=== PATIENT | female | born 1935 | race Caucasian/White ===

== ENCOUNTER 2017-06-09 08:34 | Inpatient (IN) ==
[2017-06-09] MEDS ORDERED: IOPAMIDOL 100 ML BOTTLE IV ONE (08:35)
[2017-06-09] MEDS ORDERED: ONDANSETRON 4 MG/2 ML VIAL IV ONE ×2 (09:22→09:31)
[2017-06-09] MEDS ORDERED: 0.9 % SODIUM CHLORIDE 2,000 ML IV ONE (09:31)
[2017-06-09] MEDS ORDERED: HYDROmorphone 2 MG/ML VIAL IV PRN (09:31)
[2017-06-09 10:32] LABS: Basophils # (Auto) 0 K/mcL (0.0-0.3); Basophils % (Auto) 0.1 % (0.0-2.0); Eosinophils # (Auto) 0 K/mcL (0.0-0.7); Eosinophils % (Auto) 0 % (0.0-7.0); Granulocytes % (Auto) 84.7 % (38.0-78.0); Lymphocytes % (Auto) 5.9 % (15.5-49.0); Mean Cell Volume 74.8 fL (80.0-100.0); Mean Corpuscular HGB Conc 32.3 g/dL (31.0-36.0); Mean Corpuscular Hemoglobin 24.2 pg (26.0-34.0); Monocytes # (Auto) 1.5 K/mcL (0.1-0.9); Monocytes % (Auto) 9.3 % (1.0-12.0); Platelet Count 262 K/mcL (140-440); RBC 4.15 M/mcL (4.00-5.20); Red Cell Distribution Width 15.8 % (11.5-14.5)
[2017-06-09 10:38] LABS: ALT/SGPT 8 U/l (0-40); Albumin 3.2 gm/dL (3.2-5.2); Albumin/Globulin Ratio 1.2 (1.0-2.3); Alkaline Phosphatase 98 U/L (39-117); Amylase 7 U/L (28-100); Blood Urea Nitrogen 38 mg/dl (8-23); Lipase < 7 U/L (7-60)
[2017-06-09] MEDS ORDERED: ONDANSETRON 4 MG/2 ML VIAL IV PRN (11:29)
--- NOTE | 2017-06-09 11:35 | Emergency Department Note ---
Abdominal Pain HPI - General Chief Complaint: Abdominal Pain Stated Complaint: abd pain, n/v Time Seen by Provider: 06/09/17 09:31 Source: patient, family Mode of arrival: ambulatory Limitations: no limitations - History of Present Illness HPI Narrative: 81-year-old female who was here yesterday for constipation. At that time she received 1 fleets enema and Dulcolax suppository. Neither which affected bowel movement production. He comes back today with pain even worse now radiating to her right groin. Her belly is so tender she cannot sit up. She has not been able to eat or drink for the last 2 days and has had intractable nausea vomiting with any oral intake. She has not been able take her pain medicines which she is on for chronic back pain. Bowel movement for the last 6-7 days. X -ray of the abdomen from yesterday is reviewed which showed constipation but no free air or dilated bowel with air-fluid levels. - Related Data Home Medications Medication Instructions Recorded Confirmed Amitriptyline [Elavil] 20 mg PO HS 06/09/17 06/09/17 Diltiazem [Cardizem Cd] 360 mg PO HS 06/09/17 06/09/17 Gabapentin [Neurontin] 100 mg PO Q12 06/09/17 06/09/17 traZODone HCL [Trazodone HCl] 50 mg PO 06/09/17 Previous Rx's Medication Instructions Recorded Ondansetron HCl [Zofran ODT] 4 mg SL Q4-6HP PRN #20 tab 06/01/17 oxyCODONE/APAP [Percocet 5-325 mg] 1 tab PO Q4-6H PRN #12 tab 06/01/17 Polyethylene Glycol 3350 [Miralax] 17 gm PO TIDP PRN #60 packet 06/08/17 Allergies Allergy/AdvReac Type Severity Reaction Status Date / Time No Known Drug Allergies Allergy Verified 06/01/17 14:18 Review of Systems All systems ED: reviewed and negative except as stated. Abdominal Pain PMH - Past Medical History Attestation: Yes: The following information was validated with the patient. Medical history: Reports: hypertension, other (Chronic back pain which she is on oxycodone for) Surgical history ED: Reports: orthopedic, other (Ankle) - Social History Smoking status: Never smoker Alcohol use: Reports: None Physical Exam 81-year-old female lying flat. Most history per her family but patient is able to answer questions and talk normally. Normocephalic atraumatic. Conjunctive are clear sclerae white and nonicteric. Normal pupillary response and extraocular movements. No nasal discharge or congestion. Oropharynx is pink and moist. Neck is supple without lymphadenopathy or thyromegaly. Heart is regular rate and rhythm. She does have a 2 out of 6 murmur that radiates to her left neck, consider aortic etiology. Lungs are clear to auscultation bilaterally without wheezes rales rhonchi or respiratory distress. Abdomen is soft distended with tenderness throughout worse to the right groin. No pedal edema. +2 radial pulse. Alert oriented Limitations: no limitations Course Vital Signs Temperature 97.1 F 06/09/17 08:35 Pulse Rate 115 H 06/09/17 08:35 Respiratory Rate 16 06/09/17 08:35 Blood Pressure 103/56 06/09/17 08:35 Pulse Oximetry (%) 97 06/09/17 08:35 Temperature 97.1 F 06/09/17 08:35 Pulse Rate 115 H 06/09/17 08:35 Respiratory Rate 16 06/09/17 08:35 Blood Pressure 103/56 06/09/17 08:35 Pulse Oximetry (%) 97 06/09/17 08:35 Abdominal Pain - Lab Data Lab results reviewed: Yes I reviewed the patient's lab results. Result diagrams: 06/09/17 09:38 06/09/17 09:38 Lab Results 06/09/17 06/09/17 06/09/17 Range/Units 09:38 09:38 09:38 WBC 16.4 H (4.5-11.0) K/mcL RBC 4.15 (4.00-5.20) M/mcL Hgb 10.0 L (12.0-15.0) g/dL Hct 31.1 L (36.0-48.0) % POC Hct 31.0 L (36.0-48.0) % MCV 74.8 L (80.0-100.0) fL MCH 24.2 L (26.0-34.0) pg MCHC 32.3 (31.0-36.0) g/dL RDW 15.8 H (11.5-14.5) % Plt Count 262 (140-440) K/mcL MPV 8.7 (7.4-10.4) fL Gran % 84.7 H (38.0-78.0) % Lymph % (Auto) 5.9 L (15.5-49.0) % [place] % (Auto) 9.3 (1.0-12.0) % Eos % (Auto) 0 (0.0-7.0) % Baso % (Auto) 0.1 (0.0-2.0) % Gran # 13.9 H (1.8-8.0) K/mcL Lymph # (Auto) 1.0 L (1.5-4.8) K/mcL [place] # (Auto) 1.5 H (0.1-0.9) K/mcL Eos # (Auto) 0 (0.0-0.7) K/mcL Baso # (Auto) 0 (0.0-0.3) K/mcL PT 15.9 H (11.9-14.5) sec INR 1.2 H (0.9-1.1) VBG Lactic Acid (0.5-2.2) mmol/L POC Sodium 136 (133-145) mmol/L Sodium 135 (133-145) mmol/L POC Potassium 3.6 (3.3-5.1) mmol/L Potassium 3.8 (3.3-5.1) mmol/L POC Chloride 103 (96-108) mmol/L Chloride 99 (96-108) mmol/L Carbon Dioxide 22 (22-30) mmol/L POC Total CO2 23 (22-30) mmol/L Anion Gap 14.0 (8-16) POC BUN 34 H (8-23) mg/dl BUN 38 H (8-23) mg/dl Creatinine 1.1 (0.6-1.1) mg/dl POC Creatinine 1.2 H (0.6-1.1) mg/dl GFR Calculation 46 Glucose 166 H (70-105) mg/dL POC Glucose 166 H (70-105) mg/dL Calcium 7.9 L (8.6-10.4) mg/dl POC WB Ioniz Calcium 1.08 L (1.16-1.32) mmol/L Total Bilirubin 0.4 (0.0-1.0) mg/dL AST 12 (0-37) U/l ALT 8 (0-40) U/l Alkaline Phosphatase 98 (39-117) U/L Total Protein 5.8 L (5.9-8.4) gm/dL Albumin 3.2 (3.2-5.2) gm/dL Globulin 2.6 (2.2-3.7) gm/dL Albumin/Globulin Ratio 1.2 (1.0-2.3) Amylase 7 L (28-100) U/L Lipase < 7 L (7-60) U/L 06/09/17 Range/Units 09:40 WBC (4.5-11.0) K/mcL RBC (4.00-5.20) M/mcL Hgb (12.0-15.0) g/dL Hct (36.0-48.0) % POC Hct (36.0-48.0) % MCV (80.0-100.0) fL MCH (26.0-34.0) pg MCHC (31.0-36.0) g/dL RDW (11.5-14.5) % Plt Count (140-440) K/mcL MPV (7.4-10.4) fL Gran % (38.0-78.0) % Lymph % (Auto) (15.5-49.0) % [place] % (Auto) (1.0-12.0) % Eos % (Auto) (0.0-7.0) % Baso % (Auto) (0.0-2.0) % Gran # (1.8-8.0) K/mcL Lymph # (Auto) (1.5-4.8) K/mcL [place] # (Auto) (0.1-0.9) K/mcL Eos # (Auto) (0.0-0.7) K/mcL Baso # (Auto) (0.0-0.3) K/mcL PT (11.9-14.5) sec INR (0.9-1.1) VBG Lactic Acid 1.2 (0.5-2.2) mmol/L POC Sodium (133-145) mmol/L Sodium (133-145) mmol/L POC Potassium (3.3-5.1) mmol/L Potassium (3.3-5.1) mmol/L POC Chloride (96-108) mmol/L Chloride (96-108) mmol/L Carbon Dioxide (22-30) mmol/L POC Total CO2 (22-30) mmol/L Anion Gap (8-16) POC BUN (8-23) mg/dl BUN (8-23) mg/dl Creatinine (0.6-1.1) mg/dl POC Creatinine (0.6-1.1) mg/dl GFR Calculation Glucose (70-105) mg/dL POC Glucose (70-105) mg/dL Calcium (8.6-10.4) mg/dl POC WB Ioniz Calcium (1.16-1.32) mmol/L Total Bilirubin (0.0-1.0) mg/dL AST (0-37) U/l ALT (0-40) U/l Alkaline Phosphatase (39-117) U/L Total Protein (5.9-8.4) gm/dL Albumin (3.2-5.2) gm/dL Globulin (2.2-3.7) gm/dL Albumin/Globulin Ratio (1.0-2.3) Amylase (28-100) U/L Lipase (7-60) U/L - Radiology Data Radiology results reviewed: Yes I reviewed the patient's radiology results. CT scan of the abdomen and pelvis shows a right pleural effusion on lower lung tissue, severe constipation, and thickened bowel from the splenic flexure down to the sigmoid with naif-colic fat stranding consistent with colitis. Disposition Pt seen by TERRAZZO GRINDER/PA only: No Clinical Impression: Obstipation, Pleural effusion, Colitis Summary: Initially treated with Zofran IV fluids and Dilaudid during workup with labs and CT scan of the abdomen pelvis. CT scan showed colitis and severe constipation. Small right pleural effusion is seen which is chronic per history Discussed case with Dr. Kaiser Bansal who agreed to accept the patient for inpatient care; transition orders written Disposition: Xfer As Inpt ([facility]) Condition: Fair Referrals: Becky Real MD [Primary Care Provider] - Kaiser Bansal MD [Physician] -
--- NOTE | 2017-06-09 13:23 | General Surg History&Physical ---
History of Present Illness Patient information: Note initiated : 06/09/17 at 1:20 pm Service Date, if different from initiated Date: [] Patient: Mckenna Hurtado 81 y/o F admitted on 06/09/17 for abd pain, n/v. Chief Complaint: [] HPI: Ms. Huratdo is a 81 year old F admitted with history of recurrent abdominal pain nausea and vomiting associated with severe constipation. The patient has a 7 day history of constipation with no flatus or bowel movement over this time. She was seen in the emergency room yesterday and was given enemas and suppositories without relief. She was discharged home on oral MiraLAX but could not keep any of the MiraLAX down and had nausea and vomiting all night. The pain in her lower abdomen has increased and she has become more distended. Her white count is up to 16,000. She has had intermittent difficulty with constipation for the past 2 months. She takes diltiazem chronically and she takes oxycodone for severe low back pain. She has taken more oxycodone of the past few months. She is admitted with intestinal obstruction due to opioid- induced constipation. Review of Systems - Constitutional malaise, weakness - EENT Nose, mouth and throat: abnormal hearing, dizziness - Breasts other (Possible right breast mass) - Cardiovascular no chest pain at rest, no dyspnea on exertion, no palpatations, no pedal edema - Respiratory no cough, no dyspnea on exertion, no wheezing, no pain with cough - Gastrointestinal abdominal pain, bloating, change in bowel habits, constipation, cramping, nausea , vomiting - Genitourinary Genitourinary: no dysuria, no urinary frequency, no urinary incontinence, no urinary urgency - Musculoskeletal abnormal gait, arthralgias, back pain, muscle cramps, myalgias, radiating pain into limb, stiffness - Integumentary changing lesions, unusual bruising - Neurological abnormal hearing, dizziness, no confusion, no convulsions, no headache(s), no numbness, no vertigo - Psychiatric no anxiety, no confusion, no depression, no memory loss - Endocrine no palpitations, no polydipsia, no polyphagia - Hematologic/Lymphatic easy bruising, no easy bleeding, no lymphadenopathy - Allergic/Immunologic no tongue swelling, no throat swelling, no uticaria, no wheezing, no lip swelling Past History Past medical history: Hypertension Right lung mass Past surgical history: Open treatment right ankle fracture Past family history: Patient not sure of history Past social history: Lives locally No drug use No alcohol use Never smoker Medications and Allergies Home Medications Medication Instructions Recorded Confirmed Type Ondansetron HCl [Zofran ODT] 4 mg SL Q4-6HP PRN #20 tab 06/01/17 06/09/17 Rx oxyCODONE/APAP [Percocet 5-325 mg] 1 tab PO Q4-6H PRN #12 tab 06/01/17 06/09/17 Rx Polyethylene Glycol 3350 [Miralax] 17 gm PO TIDP PRN #60 packet 06/08/17 Rx Amitriptyline [Elavil] 20 mg PO HS 06/09/17 06/09/17 History Diltiazem [Cardizem Cd] 360 mg PO DAILY 06/09/17 06/09/17 History Gabapentin [Neurontin] 100 mg PO BID 06/09/17 06/09/17 History Gabapentin [Neurontin] 200 mg PO HS 06/09/17 06/09/17 History traZODone HCL [Trazodone HCl] 50 mg PO HS 06/09/17 06/09/17 History Allergies Allergy/AdvReac Type Severity Reaction Status Date / Time No Known Drug Allergies Allergy Verified 06/09/17 12:31 Exam Temp Pulse Resp BP Pulse Ox 99.7 F H 96 H 20 107/63 97 06/09/17 12:37 06/09/17 12:37 06/09/17 12:37 06/09/17 12:37 06/09/17 12:37 - General physical appearance well developed, well nourished, moderate distress, moderate pain - Eyes PERRL, normal ocular movement. negative: icteric - ENT normal pinna, normal nares, normal mucosa, no congestion, decreased hearing - Head Head exam IM: Present: atraumatic, normal inspection, normocephalic - Neck no masses, trachea midline, no lymphadectomy, no venous distension, other (Soft left carotid bruit) carotid bruit: left - Cardiovascular Cardiovascular exam IM: Present: normal rate and rhythm, RRR, +S1, +S2. Absent : JVD - Respiratory normal expansion, normal respiratory effort, clear to percussion, clear to auscultation - Abdomen Abdomen: Present: soft, tender, bowel sounds, distended (Diffusely distended with diffuse tenderness; active bowel sounds; no palpable masses) Hernia: Present: none - Genitourinary Present: normal external genitalia - Integumentary Present: no rash, no growths, no abnormal pigmentation, other (Scattered subcutaneous ecchymotic lesions) - Neurologic Present: normal coordination, normal sensation - Musculoskeletal Present: other (Gait and stance not tested) - Psychiatric Present: oriented to time, oriented to person, oriented to place, speech is normal, memory intact Assessment and Plan (1) Constipation due to opioid therapy Cardizem will be withheld for the next day also Relistor 12 mg subcu daily 3 Reglan 5 mg IV every 6 Start oral MiraLAX once patient can tolerate p.o. Status: Acute (2) Low back pain at multiple sites Treat with IV narcotic analgesics ,Neurontin, and muscle relaxants Status: Acute (3) Hypertension Diltiazem until her constipation is better controlled will be withheld Status: Acute
[2017-06-09] MEDS: 0.9 % SODIUM CHLORIDE 1,000 ML IV SCH (13:40)
[2017-06-09] MEDS: METHYLNALTREXONE BROMIDE 12 MG/0.6 ML SYRINGE SQ SCH (15:00)
--- NOTE | 2017-06-09 16:04 | Cat Scan Report ---
CLINICAL INFORMATION: Abdominal pain and constipation COMPARISON: None. TECHNIQUE: Following enteric contrast, 80 cc of Isovue-300 were injected intravenously, and 60 seconds later, 0.625 mm helical slices were obtained from the mid heart through the subtrochanteric regions. Following reconstruction, 2.5 mm sagittal, coronal and axial reformatted images were processed and reviewed at bone, lung and soft tissue windows. Five minutes later, 0.625 mm helical slices were obtained from the mid heart through the kidneys and viewed at soft tissue windows.The exam was performed using radiation dose optimization techniques including, but not limited to, automated exposure control, adjustment of the mA and/or kV according to patient size and use of iterative reconstruction technique. FINDINGS: Lung bases show small right pleural effusion recess and subsegmental atelectasis in the posterior right lower lobe. The visualized heart is grossly normal in size. There is moderate calcific plaque in the coronary arteries and calcification in the aortic and mitral valves. Small hiatal hernia is noted Images through the abdomen show the gallbladder and bile ducts, liver, both adrenal glands, spleen and pancreas are normal in size, configuration and attenuation without focal lesion. Scattered fibrofatty and calcific plaque is seen in in the abdominal aorta, but the aorta is normal in contour and caliber. The celiac, SMA, ISAÍAS and renal arteries are widely patent. Images through the pelvis the urinary bladder is mildly distended and slightly bladder distends below the urogenital diaphragm. Normal-appearing postmenopausal uterus is anteflexed and spans 7 x 3 cm. The ovaries are normal. Small amount of free fluid is noted deep true pelvis. The colon is mildly dilated and demonstrate mild concentric wall thickening and mild pericolonic inflammation with small fluid in the pericolonic gutter and in the mesenteric cavity. Interestingly, the sigmoid is dilated to the rectosigmoid junction where there is abrupt transition into a very narrow rectum. The possibility of distal sigmoid/proximal rectal obstruction due to stricture should be entertained. Bone windows show degenerative changes in the lumbar spine IMPRESSION: 1. Mild colonic dilatation to the rectosigmoid junction is abrupt transition into a narrowed rectum. The possibility of distal sigmoid obstruction due to stricture etc. should be entertained. Please correlate with Digital rectal exam, endoscopy etc. Minimal concentric wall thickening of the entire colon with pericolonic inflammation and free fluid may be due to distal colonic obstruction or a secondary process such as infectious or inflammatory colitis 2. Small hiatal hernia 3. Small right pleural effusion Interpreted and Authenticated by: Beny Gale 06/09/17
[2017-06-09] MEDS: PANTOPRAZOLE 40 MG VIAL IV SCH (17:07)
[2017-06-09] MEDS: METOCLOPRAMIDE 10 MG/2 ML VIAL IV SCH (17:08)
[2017-06-09] MEDS: AMITRIPTYLINE 10 MG TABLET PO SCH (21:34)
[2017-06-09] MEDS: traZODone HCL 50 MG TABLET PO SCH (21:34)
[2017-06-09] MEDS: GABAPENTIN 100 MG CAPSULE PO SCH (21:34)
[2017-06-10] MEDS: METOCLOPRAMIDE 10 MG/2 ML VIAL IV SCH ×5 (00:12→23:54)
[2017-06-10] MEDS: 0.9 % SODIUM CHLORIDE 1,000 ML IV SCH ×4 (00:15→20:31)
[2017-06-10 05:42] LABS: Basophils # (Auto) 0 K/mcL (0.0-0.3); Basophils % (Auto) 0 % (0.0-2.0); Eosinophils # (Auto) 0 K/mcL (0.0-0.7); Eosinophils % (Auto) 0.2 % (0.0-7.0); Granulocytes % (Auto) 79.6 % (38.0-78.0); Lymphocytes # (Auto) 1.1 K/mcL (1.5-4.8); Mean Cell Volume 75.4 fL (80.0-100.0); Mean Corpuscular HGB Conc 31.6 g/dL (31.0-36.0); Mean Corpuscular Hemoglobin 23.9 pg (26.0-34.0); Monocytes # (Auto) 1.2 K/mcL (0.1-0.9); Monocytes % (Auto) 10.2 % (1.0-12.0); Platelet Count 231 K/mcL (140-440); Red Cell Distribution Width 16.3 % (11.5-14.5)
[2017-06-10 06:11] LABS: ALT/SGPT 6 U/l (0-40); Albumin 2.4 gm/dL (3.2-5.2); Alkaline Phosphatase 87 U/L (39-117); Bilirubin,Direct < 0.2 mg/dL (0.0-0.3); Blood Urea Nitrogen 34 mg/dl (8-23); Gamma Glutamyl Transpeptidase 13 U/L (5-36); Uric Acid 5.3 mg/dL (2.5-8.0)
[2017-06-10] MEDS: PANTOPRAZOLE 40 MG VIAL IV SCH ×2 (07:02→17:56)
[2017-06-10] MEDS: GABAPENTIN 100 MG CAPSULE PO SCH ×3 (08:42→21:51)
[2017-06-10] MEDS: METHYLNALTREXONE BROMIDE 12 MG/0.6 ML SYRINGE SQ SCH (09:08)
[2017-06-10] MEDS ORDERED: FLU VACC QS2017-18 36MOS UP/PF 60 MCG/0.5 ML SYRINGE IM ONE (10:00)
[2017-06-10] MEDS ORDERED: PNEUMOCOCCAL 23-VAL P-SAC VAC 0.5 ML VIAL IM ONE (10:15)
[2017-06-10 12:22] LABS: Appearance,Urine HAZY; Bacteria,Urine MANY /hpf (0); Bilirubin,Urine NEG (NEG); Glucose,Urine (UA) NEGATIVE (NEG); Leukocyte Esterase,Urine 75 /uL (NEG); Mucus,Urine MANY /hpf (0); Protein,Urine 30 mg/dL (NEG); Specific Gravity,Urine 1.028 (1.000-1.035); Urine Blood 0.03 mg/dL (<0.03); Urine RBC 1 /hpf (0-1); Urine Squamous Epithelial Cell 2 /hpf (0-4); Urine WBC 9 /hpf (0-4)
[2017-06-10 12:40] LABS: Color,Urine YELLOW
--- NOTE | 2017-06-10 13:03 | General Surgery Progress Note ---
Subjective Patient reports: feels better, still having pain, no flatus, no bowel movement, afebrile Narrative: Note initiated : 06/10/17 at 1:01 pm Service Date, if different from initiated Date: [] Patient: Mckenna Hurtado 81 y/o F admitted on 06/09/17 for Abd Pain, N/V/ Constipation due to Opioid Therapy. Chief Complaint: [Patient is doing well but she still has not passed flatus or had a bowel movement. She denies nausea. Her abdominal distention is clinically worse but she does not have as much tenderness or pain. She does have more active bowel sounds at this time that she had on yesterday.] Objective Temp Pulse Resp BP Pulse Ox 99.2 F H 92 H 18 138/90 98 06/10/17 12:00 06/10/17 12:00 06/10/17 12:00 06/10/17 12:00 06/10/17 12:00 - Additional Data Intake & Output - Last 24 hours: Intake & Output 06/08/17 06/09/17 06/10/17 06/11/17 05:59 05:59 05:59 05:59 Intake Total 1300 / 1300 1800 / 1800 Output Total 201 / 201 Balance 1099 / 1099 1800 / 1800 Weight 179 lb 8 oz - General physical appearance well developed, well nourished, no distress - Eyes PERRL - ENT no congestion - Neck no venous distension - Respiratory normal expansion, normal respiratory effort, clear to auscultation - Cardiovascular Cardiovascular exam: Present: normal rate and rhythm, RRR, +S1, +S2. Absent: gallop, JVD - Abdomen soft, tender (Mildly tender to firm palpation; much better active bowel sounds; increased distention with tympany) - Rectum other (Decreased anal sphincter tone; no masses or stool in rectum) - Integumentary no rash, no growths, no abnormal pigmentation - Neurologic normal coordination, normal sensation - Musculoskeletal normal posture - Psychiatric oriented to time, oriented to person, oriented to place, speech is normal, memory intact - Labs 06/10/17 04:10 06/10/17 04:10 Diabetes panel 06/10/17 Range/Units 04:10 Sodium 138 (133-145) mmol/L Potassium 3.9 (3.3-5.1) mmol/L Chloride 104 (96-108) mmol/L Carbon Dioxide 22 (22-30) mmol/L BUN 34 H (8-23) mg/dl Creatinine 0.9 (0.6-1.1) mg/dl Glucose 123 H (70-105) mg/dL Calcium 7.3 L (8.6-10.4) mg/dl AST 10 (0-37) U/l ALT 6 (0-40) U/l Alkaline Phosphatase 87 (39-117) U/L Total Protein 4.8 L (5.9-8.4) gm/dL Albumin 2.4 L (3.2-5.2) gm/dL Triglycerides 103 (<150) mg/dl Calcium panel 06/10/17 Range/Units 04:10 Calcium 7.3 L (8.6-10.4) mg/dl Phosphorus 2.0 L (2.7-4.5) mg/dL Albumin 2.4 L (3.2-5.2) gm/dL Pituitary panel 06/10/17 Range/Units 04:10 Sodium 138 (133-145) mmol/L Potassium 3.9 (3.3-5.1) mmol/L Chloride 104 (96-108) mmol/L Carbon Dioxide 22 (22-30) mmol/L BUN 34 H (8-23) mg/dl Creatinine 0.9 (0.6-1.1) mg/dl Glucose 123 H (70-105) mg/dL Calcium 7.3 L (8.6-10.4) mg/dl Adrenal panel 06/10/17 Range/Units 04:10 Sodium 138 (133-145) mmol/L Potassium 3.9 (3.3-5.1) mmol/L Chloride 104 (96-108) mmol/L Carbon Dioxide 22 (22-30) mmol/L BUN 34 H (8-23) mg/dl Creatinine 0.9 (0.6-1.1) mg/dl Glucose 123 H (70-105) mg/dL Calcium 7.3 L (8.6-10.4) mg/dl Total Bilirubin 0.3 (0.0-1.0) mg/dL AST 10 (0-37) U/l ALT 6 (0-40) U/l Alkaline Phosphatase 87 (39-117) U/L Total Protein 4.8 L (5.9-8.4) gm/dL Albumin 2.4 L (3.2-5.2) gm/dL Assessment and Plan (1) Constipation due to opioid therapy Status: Acute Assessment and plan: Start GoLYTELY 8 ounces 4 times daily Milk of magnesia 30 cc every 4 hours 2 view abdominal x-rays in the morning Current Visit: No (2) Low back pain at multiple sites Status: Acute Current Visit: Yes (3) Hypertension Status: Acute Current Visit: Yes - Time Spent With Patient Total time spent is greater than 50% in coordination of care (as documented) at patient's floor/unit and/or counseling patient:
[2017-06-10] MEDS: MAGNESIUM HYDROXIDE 30 ML ORAL.SUSP PO SCH ×3 (14:30→23:55)
[2017-06-10] MEDS: POLYETHYLENE GLYCOL 3350 17 GM PACKET PO SCH ×3 (14:30→21:49)
[2017-06-10] MEDS: AMITRIPTYLINE 10 MG TABLET PO SCH (21:50)
[2017-06-10] MEDS: traZODone HCL 50 MG TABLET PO SCH (21:50)
[2017-06-11] MEDS: METOCLOPRAMIDE 10 MG/2 ML VIAL IV SCH ×2 (06:19→12:56)
[2017-06-11] MEDS: 0.9 % SODIUM CHLORIDE 1,000 ML IV SCH ×2 (06:20→13:00)
[2017-06-11 06:28] LABS: Basophils # (Auto) 0 K/mcL (0.0-0.3); Basophils % (Auto) 0.2 % (0.0-2.0); Eosinophils # (Auto) 0.2 K/mcL (0.0-0.7); Eosinophils % (Auto) 2.2 % (0.0-7.0); Granulocytes % (Auto) 75.7 % (38.0-78.0); Lymphocytes % (Auto) 11.7 % (15.5-49.0); Mean Cell Volume 74.6 fL (80.0-100.0); Mean Corpuscular HGB Conc 31.8 g/dL (31.0-36.0); Mean Corpuscular Hemoglobin 23.7 pg (26.0-34.0); Monocytes # (Auto) 0.9 K/mcL (0.1-0.9); Monocytes % (Auto) 10.2 % (1.0-12.0); Platelet Count 228 K/mcL (140-440); RBC 3.48 M/mcL (4.00-5.20); Red Cell Distribution Width 15.8 % (11.5-14.5)
[2017-06-11 06:52] LABS: ALT/SGPT 10 U/l (0-40); Albumin 2.5 gm/dL (3.2-5.2); Alkaline Phosphatase 81 U/L (39-117); Bilirubin,Direct < 0.2 mg/dL (0.0-0.3); Blood Urea Nitrogen 22 mg/dl (8-23); Gamma Glutamyl Transpeptidase 12 U/L (5-36); Uric Acid 5.1 mg/dL (2.5-8.0)
[2017-06-11] MEDS: PANTOPRAZOLE 40 MG VIAL IV SCH (07:50)
--- NOTE | 2017-06-11 08:21 | XRay Report ---
HISTORY: Reason for Exam:FOLLOW -UP OF SMALL BOWEL OBSTRUCTION FINDINGS: There is present in nondistended large and small intestine. The dilatation of the colon seen on the CT scan dated 06/09/17 has resolved. There are no abnormal air-fluid levels or free intra-abdominal air. There is contrast in the urinary bladder following the recent CT scan. 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 There is a residual tiny right-sided pleural effusion with bands of discoid atelectasis adjacent to the diaphragm. IMPRESSION: Resolved bowel obstruction Interpreted and Authenticated by: Camden Mo 06/11/17
[2017-06-11] MEDS: METHYLNALTREXONE BROMIDE 12 MG/0.6 ML SYRINGE SQ SCH (08:26)
[2017-06-11] MEDS: GABAPENTIN 100 MG CAPSULE PO SCH ×3 (08:26→20:31)
[2017-06-11] MEDS: POLYETHYLENE GLYCOL 3350 17 GM PACKET PO SCH ×4 (08:27→20:37)
--- NOTE | 2017-06-11 13:07 | General Surgery Progress Note ---
Subjective Patient reports: feels better, pain is less, tolerating liquids well, flatus, bowel movement, afebrile Narrative: Note initiated : 06/11/17 at 1:05 pm Service Date, if different from initiated Date: [] Patient: Mckenna Hurtado 81 y/o F admitted on 06/09/17 for Abd Pain, N/V/ Constipation due to Opioid Therapy. Chief Complaint: [Patient is doing much better. She had multiple bowel movements last night and today. She no longer has abdominal distention. She is tolerating her clear liquids without difficulty. Her abdominal x-rays shows reduction in dilated bowel.] Objective Temp Pulse Resp BP Pulse Ox 98.3 F 98 H 18 122/74 95 06/11/17 11:40 06/11/17 11:40 06/11/17 11:40 06/11/17 11:40 06/11/17 11:40 - Additional Data Intake & Output - Last 24 hours: Intake & Output 06/09/17 06/10/17 06/11/17 06/12/17 05:59 05:59 05:59 05:59 Intake Total 1300 / 1300 3270 / 3270 1646 / 1646 Output Total 201 / 201 Balance 1099 / 1099 3270 / 3270 1646 / 1646 Weight 179 lb 8 oz 179 lb 8 oz - General physical appearance well nourished, no distress - Eyes PERRL - ENT no congestion - Neck no venous distension - Respiratory normal expansion, normal respiratory effort, clear to auscultation - Cardiovascular Cardiovascular exam: Present: normal rate and rhythm, RRR, +S1, +S2. Absent: JVD - Abdomen soft, tender (Still with mild diffuse tenderness but with much less distention; hypoactive bowel sounds) - Integumentary no rash, no growths, no abnormal pigmentation - Neurologic normal coordination, normal sensation - Labs 06/11/17 05:42 06/11/17 05:42 Diabetes panel 06/11/17 Range/Units 05:42 Sodium 139 (133-145) mmol/L Potassium 3.2 L (3.3-5.1) mmol/L Chloride 106 (96-108) mmol/L Carbon Dioxide 23 (22-30) mmol/L BUN 22 (8-23) mg/dl Creatinine 0.7 (0.6-1.1) mg/dl Glucose 116 H (70-105) mg/dL Calcium 7.4 L (8.6-10.4) mg/dl AST 19 (0-37) U/l ALT 10 (0-40) U/l Alkaline Phosphatase 81 (39-117) U/L Total Protein 5.0 L (5.9-8.4) gm/dL Albumin 2.5 L (3.2-5.2) gm/dL Triglycerides 111 (<150) mg/dl Calcium panel 06/11/17 Range/Units 05:42 Calcium 7.4 L (8.6-10.4) mg/dl Phosphorus 1.3 L (2.7-4.5) mg/dL Albumin 2.5 L (3.2-5.2) gm/dL Pituitary panel 06/11/17 Range/Units 05:42 Sodium 139 (133-145) mmol/L Potassium 3.2 L (3.3-5.1) mmol/L Chloride 106 (96-108) mmol/L Carbon Dioxide 23 (22-30) mmol/L BUN 22 (8-23) mg/dl Creatinine 0.7 (0.6-1.1) mg/dl Glucose 116 H (70-105) mg/dL Calcium 7.4 L (8.6-10.4) mg/dl Adrenal panel 06/11/17 Range/Units 05:42 Sodium 139 (133-145) mmol/L Potassium 3.2 L (3.3-5.1) mmol/L Chloride 106 (96-108) mmol/L Carbon Dioxide 23 (22-30) mmol/L BUN 22 (8-23) mg/dl Creatinine 0.7 (0.6-1.1) mg/dl Glucose 116 H (70-105) mg/dL Calcium 7.4 L (8.6-10.4) mg/dl Total Bilirubin 0.3 (0.0-1.0) mg/dL AST 19 (0-37) U/l ALT 10 (0-40) U/l Alkaline Phosphatase 81 (39-117) U/L Total Protein 5.0 L (5.9-8.4) gm/dL Albumin 2.5 L (3.2-5.2) gm/dL Assessment and Plan (1) Constipation due to opioid therapy Status: Acute Assessment and plan: Regular diet DC IV Replace potassium and phosphorus Probable discharge in the morning Current Visit: No (2) Low back pain at multiple sites Status: Acute Assessment and plan: Start oral pain medications Current Visit: Yes (3) Hypertension Status: Acute Assessment and plan: Start oral antihypertensive medications Current Visit: Yes - Time Spent With Patient Total time spent is greater than 50% in coordination of care (as documented) at patient's floor/unit and/or counseling patient:
[2017-06-11] MEDS ORDERED: ONDANSETRON ODT 4 MG TABLET SL PRN (13:16)
[2017-06-11] MEDS ORDERED: oxyCODONE/APAP 5/325MG TABLET PO PRN (13:17)
[2017-06-11] MEDS: POTASSIUM CHLORIDE 20 MEQ TABLET PO SCH (17:32)
[2017-06-11] MEDS: METOCLOPRAMIDE 10 MG TABLET PO SCH ×2 (17:33→20:31)
[2017-06-11] MEDS: PANTOPRAZOLE 40 MG TABLET PO SCH (17:33)
[2017-06-11] MEDS: AMITRIPTYLINE 10 MG TABLET PO SCH (20:31)
[2017-06-11] MEDS: traZODone HCL 50 MG TABLET PO SCH (20:31)
[2017-06-11] MEDS: NEUTRA PHOS 1 PACKET PO SCH (20:34)
[2017-06-12 06:32] LABS: Basophils # (Auto) 0 K/mcL (0.0-0.3); Basophils % (Auto) 0.3 % (0.0-2.0); Eosinophils # (Auto) 0.3 K/mcL (0.0-0.7); Granulocytes % (Auto) 69.7 % (38.0-78.0); Lymphocytes # (Auto) 1.1 K/mcL (1.5-4.8); Mean Cell Volume 74.4 fL (80.0-100.0); Mean Corpuscular HGB Conc 31.7 g/dL (31.0-36.0); Mean Corpuscular Hemoglobin 23.6 pg (26.0-34.0); Monocytes # (Auto) 0.8 K/mcL (0.1-0.9); Platelet Count 232 K/mcL (140-440); RBC 3.38 M/mcL (4.00-5.20)
[2017-06-12 07:13] LABS: ALT/SGPT 14 U/l (0-40); Albumin 2.7 gm/dL (3.2-5.2); Albumin/Globulin Ratio 1.1 (1.0-2.3); Alkaline Phosphatase 73 U/L (39-117); Bilirubin,Direct < 0.2 mg/dL (0.0-0.3); Blood Urea Nitrogen 16 mg/dl (8-23); Gamma Glutamyl Transpeptidase 14 U/L (5-36); Uric Acid 5.2 mg/dL (2.5-8.0)
[2017-06-12] MEDS: POTASSIUM CHLORIDE 20 MEQ TABLET PO SCH (08:31)
[2017-06-12] MEDS: METOCLOPRAMIDE 10 MG TABLET PO SCH ×2 (08:32→12:12)
[2017-06-12] MEDS: NEUTRA PHOS 1 PACKET PO SCH (08:32)
[2017-06-12] MEDS: POLYETHYLENE GLYCOL 3350 17 GM PACKET PO SCH (08:32)
[2017-06-12] MEDS: GABAPENTIN 100 MG CAPSULE PO SCH ×2 (08:34→12:12)
[2017-06-12] MEDS: PANTOPRAZOLE 40 MG TABLET PO SCH (08:35)
[2017-06-12] MEDS ORDERED: DILTIAZEM 180 MG CAP.XL.24H PO SCH (09:00)
--- NOTE | 2017-06-12 10:01 | Discharge Summary ---
Providers - Providers Patient information: Note initiated : 06/12/17 at 9:59 am Service Date, if different from initiated Date: [] Patient: Mckenna Hurtado 81 y/o F admitted on 06/09/17 for Abd Pain, N/V/ Constipation due to Opioid Therapy. Chief Complaint: [] Date of admission: 06/09/17 Discharge date: 06/12/17 Attending physician: Preet Bansal Hospitalization Hospital course: 81-year-old female who is admitted with severe constipation. The patient has a history of severe back pain and use of opioids. She was also on diltiazem which is also constipating. She was seen in the emergency room and treated for severe constipation extending to the right colon. Enemas were given but were not effective. She was sent home on MiraLAX but could not keep it down because of the obstruction. She returns to the emergency room for evaluation and her severe constipation persists. She was admitted for more aggressive treatment of opioid induced severe constipation. No other pathology was noted on her CT scan. She was treated with Relistor 12 mg subcu daily and Reglan 5 mg IV every 6 hours. After her nausea resolved she was given a MiraLAX and her bowels finally moved. Over the past day and a half she has had multiple large bowel movements and her abdomen is now benign. She is asymptomatic at this time and is tolerating a soft diet. She is stable enough for discharge home. Discharge diagnosis: severe constipation Secondary discharge diagnosis: colonic obstruction Reason for admission: colonic obstruction Procedures: none Pertinent studies/significant findings: ct of abdomen and pelvis with contrast Complications: none Exam Temp Pulse Resp BP Pulse Ox 96.9 F L 66 16 155/77 94 06/12/17 07:17 06/12/17 08:00 06/12/17 07:17 06/12/17 07:17 06/12/17 08:00 - General physical appearance well developed, well nourished, no distress - Eyes PERRL, normal ocular movement - ENT normal pinna, normal nares, normal mucosa, no hearing loss, no congestion - Head Head exam IM: Present: atraumatic, normocephalic - Neck no masses, no bruits, trachea midline, no lymphadectomy, no venous distension - Cardiovascular Cardiovascular exam IM: Present: normal rate and rhythm - Respiratory normal expansion, normal respiratory effort, clear to percussion, clear to auscultation - Abdomen Abdomen: Present: soft, tender (much less tender; no distention; good active bowel sounds), bowel sounds Hernia: Present: none - Genitourinary Present: normal external genitalia - Rectum Rectum: Present: no masses - Integumentary Present: no rash, no growths, no abnormal pigmentation - Neurologic Present: normal coordination, normal sensation - Musculoskeletal Present: normal posture, other (abnormal gait) - Psychiatric Present: oriented to time, oriented to person, oriented to place, speech is normal, memory intact Discharge Plan - Patient/Caregiver Discharge Instructions Activity: increase activity as tolerated Diet: Regular Diet Additional Instructions: MIRALAX 3X DAILY NEEDED FOR CONSTIPATION RESUME ALL OTHER HOME MEDICATIONS - Follow up Plan Follow up with: Becky Real MD [Primary Care Provider] - Preet Bansal MD [Physician] - Disposition: Home, Self-Care Prognosis: Good Rehab Potential: Good I certify that the patient requires SNF services.: No Overall status at discharge: patient is back to baseline Pending Studies Resuscitation Status Full Code Diet Regular Diet Start SatJun 11 1308 Amitriptyline HCl (Elavil) 20 mg PO [facility] Last Admin: 06/11/17 20:31 Dose: 20 mg Admin: 06/10/17 21:50 Dose: 20 mg Admin: 06/09/17 21:34 Dose: 20 mg Diltiazem HCl (Cardizem Cd) 360 mg PO DAILY [facility] Last Admin: 06/12/17 08:33 Dose: 360 mg Gabapentin (Neurontin) 100 mg PO BID@0800,1200 [facility] Last Admin: 06/12/17 08:34 Dose: 100 mg Admin: 06/11/17 12:57 Dose: 100 mg Admin: 06/11/17 08:26 Dose: 100 mg Admin: 06/10/17 12:32 Dose: 100 mg Admin: 06/10/17 08:42 Dose: 100 mg Gabapentin (Neurontin) 200 mg PO [facility] Last Admin: 06/11/17 20:31 Dose: 200 mg Admin: 06/10/17 21:51 Dose: 200 mg Admin: 06/09/17 21:34 Dose: 200 mg Metoclopramide HCl (Reglan) 5 mg PO [facility] Last Admin: 01/31/18 08:32 Dose: 5 mg Admin: 06/11/17 20:31 Dose: 5 mg Admin: 06/11/17 17:33 Dose: 5 mg Pantoprazole Sodium (Protonix) 40 mg PO BIDAC [facility] Last Admin: 06/12/17 08:35 Dose: 40 mg Admin: 06/11/17 17:33 Dose: 40 mg Polyethylene Glycol (Miralax) 17 gm PO QID [facility] Last Admin: 06/12/17 08:32 Dose: 17 gm Admin: 06/11/17 20:37 Dose: Not Given Admin: 06/11/17 16:02 Dose: Admin: 06/11/17 12:57 Dose: Admin: 06/11/17 08:27 Dose: 17 gm Admin: 06/10/17 21:49 Dose: 17 gm Admin: 06/10/17 18:50 Dose: Not Given Admin: 06/10/17 14:30 Dose: 17 gm Potassium Chloride (Kdur) 40 meq PO BIDCC [facility] Last Admin: 06/12/17 08:31 Dose: 40 meq Admin: 06/11/17 17:32 Dose: 40 meq Potassium/Phosphorus/Sodium (Neutra Phos) 2 packet PO BID [facility] Last Admin: 06/12/17 08:32 Dose: 2 packet Admin: 06/11/17 20:34 Dose: 2 packet Trazodone HCl (Desyrel) 50 mg PO HS [facility] Last Admin: 06/11/17 20:31 Dose: 50 mg Admin: 06/10/17 21:50 Dose: 50 mg Admin: 06/09/17 21:34 Dose: 50 mg Shift Summary 06/12/17 03:53 Shift Summary by Heather Schwarz Pt slept most of the night. Had only 3 BM tonight. Has had no pain. Sats on RA at 95%. Hoping to d/c today. Initialized on 06/12/17 03:53 - END OF NOTE
== END 2017-06-12 12:00 | disposition home or self-care (01) | DRG 392 ==
LOC: ED 08:34 → MEDSUR 12:15
PROVIDERS: ADMIT Family Medicine Adult Medicine; ATTEND Family Medicine Adult Medicine

== ENCOUNTER 2023-08-08 13:49 | Inpatient (IN) ==
[2023-08-08] MEDS ORDERED: IOPAMIDOL 100 ML BOTTLE IV ONE (13:50)
[2023-08-08] MEDS: PANTOPRAZOLE 40 MG VIAL IV ONE (14:32)
[2023-08-08] MEDS: 0.9 % SODIUM CHLORIDE 500 ML IV ONE (14:33)
[2023-08-08 14:34] LABS: Basophils # (Auto) 0.04 K/mcL (0.00-0.30); Basophils % (Auto) 0.4 % (0.0-2.0); Eosinophils # (Auto) 0.06 K/mcL (0.00-0.70); Eosinophils % (Auto) 0.6 % (0.0-7.0); Hematocrit 34.2 % (34.1-44.9); Hemoglobin 10.8 g/dL (11.2-15.7); Lymphocytes # (Auto) 1.45 K/mcL (1.50-4.80); Lymphocytes % (Auto) 13.4 % (15.5-49.0); Mean Cell Volume 86.1 fL (80.0-100.0); Mean Corpuscular HGB Conc 31.6 g/dL (31.0-36.0); Mean Platelet Volume 9.4 fL (8.8-12.5); Monocytes # (Auto) 1.01 K/mcL (0.10-0.90); Monocytes % (Auto) 9.3 % (1.0-12.0); Neutrophils % (Auto) 75.2 % (38.0-78.0); Platelet Count 354 K/mcL (140-440); RBC 3.97 M/mcL (3.59-5.38); Red Cell Distribution Width 13.5 % (11.5-14.5); WBC 10.8 K/mcL (4.5-11.0)
[2023-08-08 14:53] LABS: ALT/SGPT < 5 U/L (<40); AST/SGOT 16 U/L (<32); Albumin 3.5 gm/dL (3.2-5.2); Alkaline Phosphatase 64 U/L (39-117); Bilirubin,Total 0.5 mg/dL (0.1-1.0); Blood Urea Nitrogen 14 mg/dL (8-23); Calcium 8.5 mg/dL (8.6-10.4); Carbon Dioxide 24 mmol/L (22-30); Chloride 98 mmol/L (96-108); Globulin 3.6 gm/dL (2.2-3.7); Glomerular Filtration Rate 56; Glucose 165 mg/dL (70-105)
[2023-08-08 15:21] LABS: INR 1.1 (0.9-1.1)
[2023-08-08 15:27] LABS: Partial Thromboplastin Time 33.5 sec (20.0-37.0)
[2023-08-08] MEDS: cefTRIAXone 1 GM VIAL IV ONE ×2 (15:44→20:59)
[2023-08-08] MEDS: AZITHROMYCIN 500 MG in DEXTROSE 5% IN WATER 250 ML IV ONE (15:45)
[2023-08-08] MEDS: IPRATROPIUM/ALBUTEROL 3 ML AMPUL.NEB NEB ONE ×2 (17:29→20:16)
[2023-08-08 19:08] LABS: C-Reactive Protein 9.68 mg/dL (0.03-0.80)
[2023-08-08] MEDS ORDERED: ACETAMINOPHEN 325 MG TABLET PO PRN (19:32)
[2023-08-08 19:45] LABS: Appearance,Urine Clear (Clear); Bacteria,Urine Mod /hpf (0); Bilirubin,Urine Negative (Negative); Color,Urine Yellow; Culture Indicated,Urine Yes; Glucose,Urine (UA) Negative (Negative); Ketones,Urine Negative (Negative); Leukocyte Esterase,Urine Negative /uL (Negative); Nitrate,Urine Positive (Negative); PH,Urine 5.5 (5.0-9.0); Protein,Urine Trace mg/dL (Negative); Specific Gravity,Urine <= 1.005 (1.000-1.035); Urine Blood Trace-lysed ery/mcL (Negative); Urine RBC 1 /hpf (0-3); Urine Squamous Epithelial Cell 1 /hpf (0-4); Urine WBC 8 /hpf (0-4)
[2023-08-08] MEDS: IPRATROPIUM/ALBUTEROL 3 ML AMPUL.NEB NEB SCH (20:16)
[2023-08-08] MEDS: BUDESONIDE 0.5 MG/2 ML AMPUL.NEB NEB SCH (20:16)
[2023-08-08] MEDS: guaiFENesin 600 MG TAB.SR.12H PO SCH (20:59)
[2023-08-08] MEDS: LACTATED RINGERS 1,000 ML IV SCH (20:59)
[2023-08-08] MEDS: SENNOSIDES 1 TABLET PO SCH (21:00)
[2023-08-08] MEDS: 0.9 % SODIUM CHLORIDE 10 ML SYRINGE IV SCH (21:28)
[2023-08-08] MEDS: POTASSIUM CHLORIDE 20 MEQ TABLET PO SCH (21:28)
[2023-08-09 06:17] LABS: Basophils # (Auto) 0.04 K/mcL (0.00-0.30); Basophils % (Auto) 0.5 % (0.0-2.0); Eosinophils # (Auto) 0.06 K/mcL (0.00-0.70); Eosinophils % (Auto) 0.7 % (0.0-7.0); Hematocrit 29.2 % (34.1-44.9); Hemoglobin 9.2 g/dL (11.2-15.7); Lymphocytes % (Auto) 15.6 % (15.5-49.0); Mean Cell Volume 86.6 fL (80.0-100.0); Mean Corpuscular HGB Conc 31.5 g/dL (31.0-36.0); Mean Platelet Volume 9.7 fL (8.8-12.5); Monocytes # (Auto) 0.84 K/mcL (0.10-0.90); Monocytes % (Auto) 10.1 % (1.0-12.0); Neutrophils % (Auto) 71.8 % (38.0-78.0); Platelet Count 294 K/mcL (140-440); RBC 3.37 M/mcL (3.59-5.38); Red Cell Distribution Width 13.6 % (11.5-14.5); WBC 8.3 K/mcL (4.5-11.0)
[2023-08-09 06:29] LABS: ALT/SGPT < 5 U/L (<40); AST/SGOT 14 U/L (<32); Albumin 3.1 gm/dL (3.2-5.2); Alkaline Phosphatase 52 U/L (39-117); Bilirubin,Total < 0.2 mg/dL (0.1-1.0); Blood Urea Nitrogen 10 mg/dL (8-23); Calcium 8.2 mg/dL (8.6-10.4); Carbon Dioxide 25 mmol/L (22-30); Chloride 102 mmol/L (96-108); Globulin 3.1 gm/dL (2.2-3.7); Glomerular Filtration Rate 65; Glucose 108 mg/dL (70-105)
[2023-08-09] MEDS: BENZONATATE 100 MG CAPSULE PO SCH (08:16)
[2023-08-09] MEDS: cefTRIAXone 2 GM in DEXTROSE 5% IN WATER 50 ML IV SCH (08:56)
[2023-08-09] MEDS: ONDANSETRON 4 MG/2 ML VIAL IV PRN (09:04)
[2023-08-09] MEDS: AZITHROMYCIN 500 MG in DEXTROSE 5% IN WATER 250 ML IV SCH (11:53)
[2023-08-10 07:12] LABS: ALT/SGPT 6 U/L (<40); AST/SGOT 18 U/L (<32); Albumin 3.4 gm/dL (3.2-5.2); Alkaline Phosphatase 60 U/L (39-117); Bilirubin,Total 0.2 mg/dL (0.1-1.0); Blood Urea Nitrogen 8 mg/dL (8-23); Calcium 8.8 mg/dL (8.6-10.4); Carbon Dioxide 25 mmol/L (22-30); Chloride 101 mmol/L (96-108); Globulin 3.5 gm/dL (2.2-3.7); Glomerular Filtration Rate 65; Glucose 124 mg/dL (70-105)
[2023-08-10 07:34] LABS: Basophils # (Auto) 0.04 K/mcL (0.00-0.30); Basophils % (Auto) 0.4 % (0.0-2.0); Eosinophils # (Auto) 0.08 K/mcL (0.00-0.70); Eosinophils % (Auto) 0.8 % (0.0-7.0); Hematocrit 33.4 % (34.1-44.9); Hemoglobin 10.2 g/dL (11.2-15.7); Lymphocytes % (Auto) 12.3 % (15.5-49.0); Mean Cell Volume 88.1 fL (80.0-100.0); Mean Corpuscular HGB Conc 30.5 g/dL (31.0-36.0); Mean Platelet Volume 9.6 fL (8.8-12.5); Monocytes # (Auto) 0.84 K/mcL (0.10-0.90); Monocytes % (Auto) 7.9 % (1.0-12.0); Neutrophils % (Auto) 76.4 % (38.0-78.0); Platelet Count 390 K/mcL (140-440); RBC 3.79 M/mcL (3.59-5.38); Red Cell Distribution Width 13.7 % (11.5-14.5); WBC 10.6 K/mcL (4.5-11.0)
[2023-08-10] MEDS: MELATONIN 3 MG TABLET PO SCH (21:44)
[2023-08-11 07:16] LABS: Basophils # (Auto) 0.03 K/mcL (0.00-0.30); Basophils % (Auto) 0.3 % (0.0-2.0); Eosinophils # (Auto) 0.06 K/mcL (0.00-0.70); Eosinophils % (Auto) 0.7 % (0.0-7.0); Hemoglobin 9.3 g/dL (11.2-15.7); Lymphocytes # (Auto) 0.98 K/mcL (1.50-4.80); Lymphocytes % (Auto) 10.8 % (15.5-49.0); Mean Cell Volume 87.7 fL (80.0-100.0); Mean Platelet Volume 9.6 fL (8.8-12.5); Monocytes # (Auto) 0.57 K/mcL (0.10-0.90); Monocytes % (Auto) 6.3 % (1.0-12.0); Platelet Count 323 K/mcL (140-440); RBC 3.42 M/mcL (3.59-5.38); Red Cell Distribution Width 13.5 % (11.5-14.5); WBC 9.1 K/mcL (4.5-11.0)
[2023-08-11 07:19] LABS: ALT/SGPT 5 U/L (<40); AST/SGOT 23 U/L (<32); Albumin 3.1 gm/dL (3.2-5.2); Albumin/Globulin Ratio 1.1 (1.0-2.3); Alkaline Phosphatase 49 U/L (39-117); Bilirubin,Total 0.2 mg/dL (0.1-1.0); Blood Urea Nitrogen 5 mg/dL (8-23); Calcium 8.4 mg/dL (8.6-10.4); Carbon Dioxide 26 mmol/L (22-30); Chloride 98 mmol/L (96-108); Globulin 2.8 gm/dL (2.2-3.7); Glomerular Filtration Rate 76; Glucose 103 mg/dL (70-105)
[2023-08-11 07:51] LABS: C-Reactive Protein 7.89 mg/dL (0.03-0.80)
[2023-08-11] MEDS: SALMETEROL XINAFOATE 1 PUFF INHALER INH SCH (08:36)
[2023-08-11] MEDS: methylPREDNISolone SOD SUCC 40 MG/ML VIAL IV SCH (08:36)
[2023-08-11] MEDS: FUROSEMIDE 20 MG/2 ML VIAL IV SCH (08:36)
[2023-08-11] MEDS: DILTIAZEM 180 MG CAP.XL.24H PO SCH (09:37)
[2023-08-12 06:49] LABS: Basophils # (Auto) 0.04 K/mcL (0.00-0.30); Basophils % (Auto) 0.4 % (0.0-2.0); Eosinophils # (Auto) 0 K/mcL (0.00-0.70); Eosinophils % (Auto) 0 % (0.0-7.0); Hematocrit 33.5 % (34.1-44.9); Hemoglobin 10.6 g/dL (11.2-15.7); Lymphocytes % (Auto) 10.8 % (15.5-49.0); Mean Cell Volume 86.1 fL (80.0-100.0); Mean Corpuscular HGB Conc 31.6 g/dL (31.0-36.0); Mean Platelet Volume 9.6 fL (8.8-12.5); Monocytes # (Auto) 0.52 K/mcL (0.10-0.90); Monocytes % (Auto) 4.7 % (1.0-12.0); Neutrophils % (Auto) 83.1 % (38.0-78.0); Platelet Count 423 K/mcL (140-440); RBC 3.89 M/mcL (3.59-5.38); Red Cell Distribution Width 13.4 % (11.5-14.5); WBC 11.1 K/mcL (4.5-11.0)
[2023-08-12 07:00] LABS: C-Reactive Protein 4.93 mg/dL (0.03-0.80)
[2023-08-12 07:11] LABS: ALT/SGPT 10 U/L (<40); AST/SGOT 28 U/L (<32); Albumin 3.4 gm/dL (3.2-5.2); Albumin/Globulin Ratio 1.1 (1.0-2.3); Alkaline Phosphatase 53 U/L (39-117); Bilirubin,Total < 0.2 mg/dL (0.1-1.0); Blood Urea Nitrogen 12 mg/dL (8-23); Calcium 8.8 mg/dL (8.6-10.4); Carbon Dioxide 28 mmol/L (22-30); Chloride 95 mmol/L (96-108); Globulin 3.2 gm/dL (2.2-3.7); Glomerular Filtration Rate 76; Glucose 122 mg/dL (70-105)
[2023-08-12] MEDS: AZITHROMYCIN 250 MG TABLET PO SCH (08:05)
[2023-08-12] MEDS: predniSONE 20 MG TABLET PO SCH (08:05)
[2023-08-12] MEDS: CEFDINIR 300 MG CAPSULE PO SCH (08:05)
== END 2023-08-12 12:30 | DRG 193 ==
LOC: ED 13:49 → MEDSUR 20:12
PROVIDERS: ADMIT Internal Medicine; ATTEND Student in an Organized Health Care Education/Training Program